=== PATIENT | female | born 1990 | race Caucasian/White ===

== ENCOUNTER 2024-12-16 13:15 | Emergency (ER) | payer MEDICAID ==
[~2024-12-16] VITALS: Ht 160 cm; Wt 66.0 kg
[2024-12-16 13:22] VITALS: TEMP 37.1; O2SAT 100
[2024-12-16] MEDS ORDERED: ACET-2708 MT (15:39)
[2024-12-16 16:37] VITALS: BP 102/65; PULSE 62; RESP 18; O2SAT 100
== END 2024-12-16 16:37 | disposition home or self-care (01) ==
LOC: ER 13:15
DX: M79.641 Pain in right hand (principal); M79.632 Pain in left forearm
CPT/HCPCS: 29125; 73130; 99283